=== PATIENT | male | born 1975 | race Caucasian/White ===

== ENCOUNTER 2016-12-11 14:08 | Emergency (ER) | payer OTHER ==
[2016-12-11 14:16] VITALS: TEMP 98.2
[2016-12-11] MEDS ORDERED: NS 1,000 ML IV ONE ×2 (15:30→15:38)
--- NOTE | 2016-12-11 15:30 | EDPHY ---
H & P Time Seen by Provider: 12/11/16 15:26 HPI/ROS: Chief complaint. Abdominal pain HPI. 41-year-old male with history of pancreatitis presents with abdominal pain and vomiting that began this morning. He knows periumbilical pain and it "hurts all over". Radiation to his back. It feels like previous pancreatitis. No diarrhea. Bowel movement this morning. Previous pancreatitis is been from alcohol but he says no alcohol for 2 months. No chest discomfort trouble breathing. No fever. No urinary symptoms. ROS Constitutional. no fever/chills, no weakness Eyes. no problems with vision ENT. no sore throat, no nasal drainage Cardiovascular. no chest pain Respiratory. no shortness of breath, no cough Abdominal. Abdominal pain with nausea vomiting . no problems urinating MS. no calf pain/swelling, no neck/back pain, no joint pain Skin. no rash Lymph. no swollen glands Neuro. no headache, no dizziness, no difficulty walking or with speech Past Medical/Surgical History: Chronic pain, pancreatitis, hypertension Social History: Single, nonsmoker, no alcohol Smoking Status: Never smoked Physical Exam: General Appearance: Alert well-developed male moderate distress vital signs are stable Eyes: Pupils equal and round no pallor or injection. ENT, Mouth: Mucous membranes are moist. Respiratory: There are no retractions, lungs are clear to auscultation. Cardiovascular: Regular rate and rhythm. Gastrointestinal: Abdomen is soft and diffusely tender. No masses. Decreased bowel sounds. No particular pain at McBurney's point Neurological: Awake and alert, sensory and motor exams grossly normal. Skin: Warm and dry, no rashes. Musculoskeletal: Neck is supple nontender. Extremities symmetrical, full range of motion. Psychiatric: Patient is oriented X 3, there is no agitation. Constitutional: Initial Vital Signs Temperature (C) 36.8 C 12/11/16 14:12 Heart Rate 99 12/11/16 14:12 Respiratory Rate 16 12/11/16 14:12 Blood Pressure 130/100 H 12/11/16 14:12 O2 Sat (%) 98 12/11/16 14:12 O2 Delivery Mode Nasal Cannula O2 (L/minute) 2 Allergies/Adverse Reactions: No Known Allergies Allergy (Verified 07/06/16 22:54) Home Medications: Medication Instructions Recorded Ondansetron Odt [Zofran Odt 4 mg 4 mg PO Q4PRN PRN #10 tab 04/01/15 (*)] morphINE [morphINE 2mg/ml Inj (*)] 04/01/15 Amoxicillin/Clavulanate Pot 875 mg PO BID #20 tab 07/06/16 [Augmentin 875 mg tab] oxyCODONE CR [Oxycontin] 15 mg PO BID 07/06/16 Ondansetron Odt [Zofran Odt] 4 mg PO Q4PRN PRN #4 tab 12/11/16 Medical Decision Making - Diagnostics Imaging Results: CT abdomen and pelvis with IV contrast reviewed by me and discussed with Dr. Lujan consistent with constipation. No evidence for pancreatitis or appendicitis. No bowel obstruction. Incidental finding of liver cysts. Procedures: IV normal saline. Zofran, Dilaudid, Ativan ED Course/Re-evaluation: Re-evaluation at 5:30 p.m.. Patient and I discussed imaging and lab results. We discussed treatment plan including criteria for return and importance of follow-up and further evaluation. He expresses understanding and agreement He requests another round of Zofran before the IV is removed though he has not vomited. Differential Diagnosis: I considered pancreatitis, appendicitis, small-bowel obstruction, constipation - Data Points Laboratory Results: Laboratory Results 12/11/16 15:50 12/11/16 15:50 12/11/16 12/11/16 15:50 15:50 WBC 9.10 10^3/uL 10^3/uL (3.80-9.50) RBC 6.16 10^6/uL 10^6/uL (4.40-6.38) Hgb 19.4 g/dL H g/dL (13.7-17.5) Hct 54.7 % H % (40.0-51.0) MCV 88.8 fL fL (81.5-99.8) MCH 31.5 pg pg (27.9-34.1) MCHC 35.5 g/dL g/dL (32.4-36.7) RDW 12.5 % % (11.5-15.2) Plt Count 165 10^3/uL 10^3/uL (150-400) MPV 9.7 fL fL (8.7-11.7) Neut % (Auto) 87.6 % H % (39.3-74.2) Lymph % (Auto) 8.0 % L % (15.0-45.0) [place] % (Auto) 4.0 % L % (4.5-13.0) Eos % (Auto) 0.0 % L % (0.6-7.6) Baso % (Auto) 0.2 % L % (0.3-1.7) Nucleat RBC Rel Count 0.0 % % (0.0-0.2) Absolute Neuts (auto) 7.97 10^3/uL H 10^3/uL (1.70-6.50) Absolute Lymphs (auto) 0.73 10^3/uL L 10^3/uL (1.00-3.00) Absolute Monos (auto) 0.36 10^3/uL 10^3/uL (0.30-0.80) Absolute Eos (auto) 0.00 10^3/uL L 10^3/uL (0.03-0.40) Absolute Basos (auto) 0.02 10^3/uL 10^3/uL (0.02-0.10) Absolute Nucleated RBC 0.00 10^3/uL 10^3/uL (0-0.01) Immature Gran % 0.2 % % (0.0-1.1) Immature Gran # 0.02 10^3/uL 10^3/uL (0.00-0.10) Sodium 138 mEq/L mEq/L (134-144) Potassium 4.3 mEq/L mEq/L (3.5-5.2) Chloride 103 mEq/L mEq/L (97-110) Carbon Dioxide 22 mEq/l mEq/l (22-31) Anion Gap 13 mEq/L mEq/L (8-16) BUN 13 mg/dL mg/dL (7-23) Creatinine 0.9 mg/dL mg/dL (0.7-1.3) Estimated GFR > 60 Glucose 119 mg/dL H mg/dL (70-100) Calcium 10.2 mg/dL mg/dL (8.5-10.4) Total Bilirubin 1.6 mg/dL H mg/dL (0.1-1.4) Conjugated Bilirubin 0.2 mg/dL mg/dL (0.0-0.5) Unconjugated Bilirubin 1.4 mg/dL H mg/dL (0.0-1.1) AST 26 IU/L IU/L (17-59) ALT 32 IU/L IU/L (21-72) Alkaline Phosphatase 80 IU/L IU/L (38-126) Total Protein 8.2 g/dL g/dL (6.3-8.2) Albumin 5.2 g/dL H g/dL (3.5-5.0) Lipase 148.0 IU/L IU/L (23-300) Ethyl Alcohol < 10 mg/dL mg/dL (0-10) Medications Given: Discontinued Medications Hydromorphone HCl (Dilaudid) 0.5 mg IVP EDNOW ONE Stop: 12/11/16 15:39 Last Admin: 12/11/16 15:55 Dose: 0.5 mg Sodium Chloride (Ns) 1,000 mls @ 0 mls/hr IV ONCE ONE PRN Reason: Wide Open Stop: 12/11/16 15:31 Last Admin: 12/11/16 16:05 Dose: 1,000 mls Sodium Chloride (Ns) 1,000 mls @ 0 mls/hr IV ONCE ONE PRN Reason: Wide Open Stop: 12/11/16 15:39 Last Admin: 12/11/16 15:50 Dose: 1,000 mls Lorazepam (Ativan Injection) 1 mg IVP EDNOW ONE Stop: 12/11/16 15:40 Last Admin: 12/11/16 15:55 Dose: 1 mg Ondansetron HCl (Zofran) 4 mg IVP EDNOW ONE Stop: 12/11/16 15:39 Last Admin: 12/11/16 15:55 Dose: 4 mg Departure - Departure Disposition: Home, Routine, Self-Care Clinical Impression: Abdominal pain Qualifiers: Abdominal location: periumbilical Qualified Code(s): R10.33 - Periumbilical pain Condition: Good Instructions: Constipation (ED) Additional Instructions: Increased fluids including fruit and prune juice. Milk of magnesia, eun Colace , magnesium citrate from the grocery store for constipation. Return for worsening pain, fever, vomiting. Recheck in 2 days if not improved Zofran if needed for nausea and vomiting Referrals: Juan Ashby MD [Primary Care Provider] - 2-3 days, if not improved Prescriptions: Ondansetron Odt [Zofran Odt] 4 mg PO Q4PRN PRN #4 tab PRN Reason: Nausea/Vomiting, Use 1st
[2016-12-11] MEDS ORDERED: ONDANSETRON 4 MG/2 ML VIAL IVP ONE ×2 (15:38→17:43)
[2016-12-11] MEDS ORDERED: HYDROmorphONE/DILAUDID 1 MG/ML SYR IVP ONE (15:38)
[2016-12-11] MEDS ORDERED: LORazepam 2 MG/ML INJ IVP ONE (15:39)
[2016-12-11 16:05] LABS: % IMMATURE GRANULYOCYTES 0.2 % (0.0-1.1); ABSOLUTE IMMATURE GRANULOCYTES 0.02 10^3/uL (0.00-0.10); ADD DIFF? NO; ADD MORPH? NO; ADD SCAN? NO; ATYPICAL LYMPHOCYTE FLAG 0 (0-99); FRAGMENT RBC FLAG 0 (0-99); HEMATOCRIT 54.7 % (40.0-51.0); HEMOGLOBIN 19.4 g/dL (13.7-17.5); LEFT SHIFT FLG 0 (0-99); LIPEMIA HEMOLYSIS FLAG 90 (0-99); MEAN CELL HEMOGLOBIN 31.5 pg (27.9-34.1); MEAN CELL HEMOGLOBIN CONCENTR. 35.5 g/dL (32.4-36.7); MEAN CELL VOLUME 88.8 fL (81.5-99.8); MEAN PLATELET VOLUME 9.7 fL (8.7-11.7); PLATELET CLUMPS FLAG 20 (0-99); PLATELET COUNT 165 10^3/uL (150-400); RED BLOOD CELL COUNT 6.16 10^6/uL (4.40-6.38); RED CELL DISTRIBUTION WIDTH 12.5 % (11.5-15.2)
[2016-12-11 16:42] LABS: ALANINE AMINOTRANSFERASE 32 IU/L (21-72); ALBUMIN 5.2 g/dL (3.5-5.0); ALKALINE PHOSPHATASE 80 IU/L (38-126); ASPARTATE AMINOTRANSFERASE 26 IU/L (17-59); BILIRUBIN,TOTAL 1.6 mg/dL (0.1-1.4); BILIRUBIN-CONJUGATED 0.2 mg/dL (0.0-0.5); BILIRUBIN-UNCONJUGATED 1.4 mg/dL (0.0-1.1); CALCIUM 10.2 mg/dL (8.5-10.4); CARBON DIOXIDE 22 mEq/l (22-31); CHLORIDE 103 mEq/L (97-110); CREATININE 0.9 mg/dL (0.7-1.3); ETHANOL SERUM < 10 mg/dL (0-10); GLOMERULAR FILTRATION RATE > 60; GLUCOSE 119 mg/dL (70-100); SODIUM 138 mEq/L (134-144); TOTAL PROTEIN 8.2 g/dL (6.3-8.2)
[2016-12-11] MEDS ORDERED: IOPAMIDOL (ISOVUE-300) 100 ML BTL ONE (16:45)
[2016-12-11 16:46] LABS: ANION GAP 13 mEq/L (8-16); POTASSIUM 4.3 mEq/L (3.5-5.2)
[2016-12-11 18:05] VITALS: BP 145/80; PULSE 70; RESP 18; O2SAT 95
== END 2016-12-11 18:05 | disposition home or self-care (01) ==
DX: R10.33 Periumbilical pain (principal); I10 Essential (primary) hypertension
CPT/HCPCS: 96374; G0480; J1170; J2060; J2405; Q9967

== ENCOUNTER 2016-12-14 15:31 | Emergency (ER) | payer OTHER ==
[2016-12-14] MEDS ORDERED: HALOPERIDOL LACT 5 MG/ML INJ ONE (15:57)
[2016-12-14] MEDS ORDERED: HALOPERIDOL LACT 5 MG/ML INJ IVP ONE (15:57)
--- NOTE | 2016-12-14 15:57 | EDPHY ---
H & P Stated Complaint: nausea and vomiting seen sunday for same Time Seen by Provider: 12/14/16 15:44 HPI/ROS: Chief Complaint: Abdominal pain, nausea, vomiting HPI: 41-year-old male with a history of recurrent pancreatitis presenting with abdominal pain, nausea and vomiting. Patient was seen 3 days ago for similar symptoms. Had a CT scan which was negative with exception of constipation. Symptoms were attributed to constipation secondary to his chronic narcotic use. Patient states that his pain was gone until this morning after he drank 2 oz of magnesium citrate. Has had worsening pain in his upper abdomen with nausea and vomiting multiple times since that time. Has not had a bowel movement for 3 days. No hematemesis. Patient states oxycodone and morphine for chronic neck pain. Denies any fevers or chills. No chest pain or shortness of breath. ROS: 10 point Review of Systems is negative except as noted in the HPI. PMH: Pancreatitis, neck pain Medications: Oxycodone, morphine Allergies: No known drug allergies Social History: Positive smoking, no alcohol for 4 months, marijuana weekly Family History: non-contributory Physical Exam: Gen: Awake, Alert, No Distress HEENT: Nose: no rhinorrhea Eyes: PERRLA, EOMI Mouth: Moist mucosa Neck: Supple, no JVD Chest: nontender, lungs clear to auscultation Heart: S1, S2 normal, no murmur Abd: Hypoactive bowel sounds, epigastric and left upper quadrant tenderness, voluntary guarding Back: no CVA tenderness, no midline tenderness Ext: no edema, non-tender Skin: no rash Neuro: CN II-XII intact, Sensation grossly intact, Strength 5/5 in bilateral upper and lower extremities - Personal History Current Tetanus/Diphtheria Vaccine: Yes - Medical/Surgical History Hx Asthma: No Hx Chronic Respiratory Disease: No Hx Diabetes: No Hx Cardiac Disease: No Hx Renal Disease: No Hx Cirrhosis: No Hx Alcoholism: No Hx HIV/AIDS: No Hx Splenectomy or Spleen Trauma: No Other PMH: R shoulder chronic pain/stenosis, pancreatitis, neck pain - Social History Smoking Status: Current some day smoker Constitutional: Initial Vital Signs Temperature (C) 36.8 C 12/14/16 15:35 Heart Rate 88 12/14/16 15:35 Respiratory Rate 18 12/14/16 15:35 Blood Pressure 161/96 H 12/14/16 15:35 O2 Sat (%) 99 12/14/16 15:35 O2 Delivery Mode Room Air Allergies/Adverse Reactions: No Known Allergies Allergy (Verified 12/14/16 15:32) Home Medications: Medication Instructions Recorded morphINE [morphINE 2mg/ml Inj (*)] 04/01/15 oxyCODONE CR [Oxycontin] 15 mg PO BID 07/06/16 Ondansetron Odt [Zofran Odt] 4 mg PO Q4PRN PRN #4 tab 12/11/16 Promethazine HCl [Phenergan 12.5mg 12.5 mg UT Q8 PRN #10 suppr 12/14/16 supp (*)] Medical Decision Making - Diagnostics Imaging Results: Imaging Impressions Abdomen Ultrasound 12/14/16 17:07 Impression: 1. No cholelithiasis or biliary ductal dilation. 2. Hepatic hemangioma, measuring 2.9 cm. Findings and recommendations discussed with Emergency Department physician, Quintin Hogan M.D., at 1847 hours, on December 14, 2016. Final report concurs with initial preliminary interpretation. ED Course/Re-evaluation: Patient is somewhat improved after Haldol, Benadryl and fluids. Is still having some pain. Has noted that he has elevation in his bilirubin. Will obtain ultrasound. Patient is unable to tolerate ultrasound secondary to pain. I have a very long discussion with him regarding his narcotic use and that is likely what is causing most of his constipation. Have encouraged him to seek alternative treatments for his chronic neck pain. Ultrasound is negative for acute biliary disease. Patient is feeling much better after his medicines. He is tolerating p.o.. He is requesting to go at this time. I have encouraged him to discuss with his physician alternate is for pain management has his chronic narcotic use is having a deleterious effect. - Data Points Laboratory Results: Laboratory Results 12/14/16 15:55 12/14/16 15:55 12/14/16 12/14/16 15:55 15:55 WBC 9.36 10^3/uL 10^3/uL (3.80-9.50) RBC 6.64 10^6/uL H 10^6/uL (4.40-6.38) Hgb 20.9 g/dL H* g/dL (13.7-17.5) Hct 57.9 % H % (40.0-51.0) MCV 87.2 fL fL (81.5-99.8) MCH 31.5 pg pg (27.9-34.1) MCHC 36.1 g/dL g/dL (32.4-36.7) RDW 12.3 % % (11.5-15.2) Plt Count 172 10^3/uL 10^3/uL (150-400) MPV 9.4 fL fL (8.7-11.7) Neut % (Auto) 77.1 % H % (39.3-74.2) Lymph % (Auto) 14.2 % L % (15.0-45.0) [place] % (Auto) 7.6 % % (4.5-13.0) Eos % (Auto) 0.3 % L % (0.6-7.6) Baso % (Auto) 0.4 % % (0.3-1.7) Nucleat RBC Rel Count 0.0 % % (0.0-0.2) Absolute Neuts (auto) 7.21 10^3/uL H 10^3/uL (1.70-6.50) Absolute Lymphs (auto) 1.33 10^3/uL 10^3/uL (1.00-3.00) Absolute Monos (auto) 0.71 10^3/uL 10^3/uL (0.30-0.80) Absolute Eos (auto) 0.03 10^3/uL 10^3/uL (0.03-0.40) Absolute Basos (auto) 0.04 10^3/uL 10^3/uL (0.02-0.10) Absolute Nucleated RBC 0.00 10^3/uL 10^3/uL (0-0.01) Immature Gran % 0.4 % % (0.0-1.1) Immature Gran # 0.04 10^3/uL 10^3/uL (0.00-0.10) Sodium 137 mEq/L mEq/L (134-144) Potassium 3.6 mEq/L mEq/L (3.5-5.2) Chloride 96 mEq/L L mEq/L (97-110) Carbon Dioxide 24 mEq/l mEq/l (22-31) Anion Gap 17 mEq/L H mEq/L (8-16) BUN 21 mg/dL mg/dL (7-23) Creatinine 1.3 mg/dL mg/dL (0.7-1.3) Estimated GFR > 60 Glucose 103 mg/dL H mg/dL (70-100) Calcium 10.1 mg/dL mg/dL (8.5-10.4) Total Bilirubin 3.1 mg/dL H mg/dL (0.1-1.4) Conjugated Bilirubin 0.5 mg/dL mg/dL (0.0-0.5) Unconjugated Bilirubin 2.6 mg/dL H mg/dL (0.0-1.1) AST 19 IU/L IU/L (17-59) ALT 31 IU/L IU/L (21-72) Alkaline Phosphatase 66 IU/L IU/L (38-126) Total Protein 8.0 g/dL g/dL (6.3-8.2) Albumin 5.2 g/dL H g/dL (3.5-5.0) Lipase 321.0 IU/L H IU/L (23-300) Medications Given: Discontinued Medications Diphenhydramine HCl (Benadryl Injection) 50 mg IVP EDNOW ONE Stop: 12/14/16 16:00 Last Admin: 12/14/16 16:04 Dose: 50 mg Haloperidol Lactate (Haldol Injection) 2.5 mg IVP EDNOW ONE Stop: 12/14/16 15:58 Last Admin: 12/14/16 16:04 Dose: 2.5 mg Hydromorphone HCl (Dilaudid) 0.5 mg IVP EDNOW ONE Stop: 12/14/16 17:34 Last Admin: 12/14/16 17:40 Dose: 0.5 mg Sodium Chloride (Ns) 1,000 mls @ 0 mls/hr IV ONCE ONE PRN Reason: Wide Open Stop: 12/14/16 16:31 Last Admin: 12/14/16 16:38 Dose: 1,000 mls Departure - Departure Disposition: Home, Routine, Self-Care Clinical Impression: Constipation, Dehydration Condition: Good Instructions: Constipation (ED), Dehydration (ED), Narcotic Abuse (ED) Additional Instructions: Please meet with your doctor to make a plan to decrease your opioid medication use. He may take MiraLax per the package instructions for constipation. Make sure to drink at least 8 hours, 8 oz glasses of water a day. Return to the emergency department for increasing pain, unable to tolerate fluids, fevers, chills, or any other concerns. Referrals: Juan Ashby MD [Primary Care Provider] - As per Instructions Prescriptions: Promethazine HCl [Phenergan 12.5mg supp (*)] 12.5 mg UT Q8 PRN #10 suppr PRN Reason: Nausea/Vomiting, Can'T Take Po
[2016-12-14 16:08] LABS: % IMMATURE GRANULYOCYTES 0.4 % (0.0-1.1); ABSOLUTE IMMATURE GRANULOCYTES 0.04 10^3/uL (0.00-0.10); ADD DIFF? NO; ADD MORPH? NO; ADD SCAN? NO; ATYPICAL LYMPHOCYTE FLAG 0 (0-99); FRAGMENT RBC FLAG 0 (0-99); HEMATOCRIT 57.9 % (40.0-51.0); LEFT SHIFT FLG 0 (0-99); LIPEMIA HEMOLYSIS FLAG 90 (0-99); MEAN CELL HEMOGLOBIN 31.5 pg (27.9-34.1); MEAN CELL HEMOGLOBIN CONCENTR. 36.1 g/dL (32.4-36.7); MEAN CELL VOLUME 87.2 fL (81.5-99.8); MEAN PLATELET VOLUME 9.4 fL (8.7-11.7); PLATELET CLUMPS FLAG 0 (0-99); PLATELET COUNT 172 10^3/uL (150-400); RED BLOOD CELL COUNT 6.64 10^6/uL (4.40-6.38); RED CELL DISTRIBUTION WIDTH 12.3 % (11.5-15.2)
[2016-12-14 16:18] LABS: HEMOGLOBIN 20.9 g/dL (13.7-17.5)
[2016-12-14 16:27] LABS: ALANINE AMINOTRANSFERASE 31 IU/L (21-72); ALBUMIN 5.2 g/dL (3.5-5.0); ALKALINE PHOSPHATASE 66 IU/L (38-126); ANION GAP 17 mEq/L (8-16); ASPARTATE AMINOTRANSFERASE 19 IU/L (17-59); BILIRUBIN,TOTAL 3.1 mg/dL (0.1-1.4); BILIRUBIN-CONJUGATED 0.5 mg/dL (0.0-0.5); BILIRUBIN-UNCONJUGATED 2.6 mg/dL (0.0-1.1); CALCIUM 10.1 mg/dL (8.5-10.4); CARBON DIOXIDE 24 mEq/l (22-31); CHLORIDE 96 mEq/L (97-110); CREATININE 1.3 mg/dL (0.7-1.3); GLOMERULAR FILTRATION RATE > 60; GLUCOSE 103 mg/dL (70-100); POTASSIUM 3.6 mEq/L (3.5-5.2); SODIUM 137 mEq/L (134-144)
[2016-12-14] MEDS ORDERED: NS 1,000 ML IV ONE (16:30)
[2016-12-14] MEDS ORDERED: HYDROmorphONE/DILAUDID 1 MG/ML SYR IVP ONE (17:33)
[2016-12-14] MEDS ORDERED: ONDANSETRON 4 MG/2 ML VIAL ONE (18:04)
[2016-12-14 20:40] VITALS: BP 141/74; PULSE 80; RESP 14; TEMP 98.4; O2SAT 94
== END 2016-12-14 20:39 | disposition home or self-care (01) ==
DX: E86.0 Dehydration (principal); K59.00 Constipation, unspecified; F17.200 Nicotine dependence, unspecified, uncomplicated
CPT/HCPCS: 96374; J1170; J1200; J2405

== ENCOUNTER 2017-10-08 11:35 | Emergency (ER) | payer OTHER ==
[2017-10-08] MEDS ORDERED: ONDANSETRON 4 MG/2 ML VIAL IVP ONE ×2 (11:57→13:48)
[2017-10-08] MEDS ORDERED: NS 1,000 ML IV ONE ×2 (11:57→12:20)
[2017-10-08] MEDS ORDERED: LORazepam 2 MG/ML INJ IVP ONE (12:04)
[2017-10-08 12:06] LABS: PLATELET COUNT 224 10^3/uL (150-400)
--- NOTE | 2017-10-08 12:16 | EDPHY ---
H & P Time Seen by Provider: 10/08/17 11:56 HPI/ROS: CHIEF COMPLAINT: Abdominal pain, vomiting HISTORY OF PRESENT ILLNESS: 42-year-old male presents to the emergency department with abdominal pain and vomiting that began last night. He has vomited 6 times. He has had several episodes of similar symptoms in the past. He has a known history of pancreatitis. He states this was typically associated with drinking. He has not drank any alcohol. He does smoke marijuana. He denies chest pain or difficulty breathing. He does not report any trauma. No treatment at home. REVIEW OF SYSTEMS: Constitutional: No fever, no chills. Eyes: No double or blurry vision. ENT: No sore throat. Respiratory: No cough, no shortness of breath. Cardiac: No chest pain. Gastrointestinal: Abdominal pain, vomiting as above. No diarrhea. Genitourinary: No dysuria. Musculoskeletal: No neck or back pain. Skin: No rashes. Neurological: No headache. Past Medical/Surgical History: Pancreatitis, chronic pain shoulder and back Social History: Single Smoking Status: Former smoker Physical Exam: General Appearance: Lethargic, no distress. 100/83, 99% on room air. Eyes: Pupils equal and round. Extraocular motions are all intact. ENT: Mouth: Mucous membranes moist. Respiratory: No wheezing, rhonchi, or rales, lungs are clear to auscultation. Cardiovascular: Regular rate and rhythm. Gastrointestinal: Abdomen is soft. He has diffuse tenderness with palpation especially the epigastric area. There is no rebound, guarding or masses noted. No CVA tenderness bilaterally. Patient is not cooperative and is rolling around when I tried to examine his abdomen. Neurological: Alert and oriented x 3, cranial nerves II through XII grossly intact Skin: Warm and dry, no rashes. Musculoskeletal: Nontender to palpate along the cervical, thoracic or lumbar spine. Neck is supple. Extremities: Full range of motion and no peripheral edema. Psychiatric: Patient is oriented X 3, there is no agitation. Constitutional: Initial Vital Signs Temperature (C) 36.7 C 10/08/17 11:38 Heart Rate 96 10/08/17 11:38 Respiratory Rate 22 H 10/08/17 11:38 Blood Pressure 100/83 H 10/08/17 11:38 O2 Sat (%) 99 10/08/17 11:38 O2 Delivery Mode Room Air Allergies/Adverse Reactions: No Known Allergies Allergy (Verified 10/08/17 11:37) Home Medications: Medication Instructions Recorded Oxycontin 10/08/17 morphINE 10/08/17 Medical Decision Making ED Course/Re-evaluation: 42-year-old male presents to the emergency department with abdominal pain. The patient states that this is exactly like his previous episodes of abdominal pain. The patient has had 5 [address] scans in the last 5 years the abdomen and pelvis showing constipation. He has had pancreatitis in the past. Lipase is normal. Laboratory studies were all unremarkable. Patient received IV normal saline, IV Zofran and IV Ativan. Feeling much better. Tolerating p.o. Fluids. Comfortable being discharged home. I do not think this patient has an acute abdomen. I do not think imaging studies are indicated. Differential Diagnosis: Including but not limited to chronic abdominal pain, colitis, pancreatitis, bowel obstruction, constipation - Data Points Laboratory Results: Laboratory Results 10/08/17 11:54 10/08/17 11:54 10/08/17 10/08/17 11:54 11:54 WBC 9.77 10^3/uL H 10^3/uL (3.80-9.50) RBC 6.01 10^6/uL 10^6/uL (4.40-6.38) Hgb 19.2 g/dL H g/dL (13.7-17.5) Hct 52.8 % H % (40.0-51.0) MCV 87.9 fL fL (81.5-99.8) MCH 31.9 pg pg (27.9-34.1) MCHC 36.4 g/dL g/dL (32.4-36.7) RDW 13.4 % % (11.5-15.2) Plt Count 224 10^3/uL 10^3/uL (150-400) MPV 9.4 fL fL (8.7-11.7) Neut % (Auto) 82.1 % H % (39.3-74.2) Lymph % (Auto) 13.6 % L % (15.0-45.0) [place] % (Auto) 3.3 % L % (4.5-13.0) Eos % (Auto) 0.2 % L % (0.6-7.6) Baso % (Auto) 0.4 % % (0.3-1.7) Nucleat RBC Rel Count 0.0 % % (0.0-0.2) Absolute Neuts (auto) 8.02 10^3/uL H 10^3/uL (1.70-6.50) Absolute Lymphs (auto) 1.33 10^3/uL 10^3/uL (1.00-3.00) Absolute Monos (auto) 0.32 10^3/uL 10^3/uL (0.30-0.80) Absolute Eos (auto) 0.02 10^3/uL L 10^3/uL (0.03-0.40) Absolute Basos (auto) 0.04 10^3/uL 10^3/uL (0.02-0.10) Absolute Nucleated RBC 0.00 10^3/uL 10^3/uL (0-0.01) Immature Gran % 0.4 % % (0.0-1.1) Immature Gran # 0.04 10^3/uL 10^3/uL (0.00-0.10) Sodium 141 mEq/L mEq/L (135-145) Potassium 3.9 mEq/L mEq/L (3.5-5.2) Chloride 106 mEq/L mEq/L (97-110) Carbon Dioxide 21 mEq/l L mEq/l (22-31) Anion Gap 14 mEq/L mEq/L (8-16) BUN 13 mg/dL mg/dL (7-23) Creatinine 0.9 mg/dL mg/dL (0.7-1.3) Estimated GFR > 60 Glucose 113 mg/dL H mg/dL (70-100) Calcium 10.3 mg/dL mg/dL (8.5-10.4) Total Bilirubin 0.9 mg/dL mg/dL (0.1-1.4) Conjugated Bilirubin 0.3 mg/dL mg/dL (0.0-0.5) Unconjugated Bilirubin 0.6 mg/dL mg/dL (0.0-1.1) AST 18 IU/L IU/L (17-59) ALT 39 IU/L IU/L (21-72) Alkaline Phosphatase 96 IU/L IU/L (38-126) Total Protein 8.4 g/dL H g/dL (6.3-8.2) Albumin 5.3 g/dL H g/dL (3.5-5.0) Lipase 197 IU/L IU/L (23-300) Medications Given: Discontinued Medications Sodium Chloride (Ns) 1,000 mls @ 0 mls/hr IV ONCE ONE PRN Reason: Wide Open Stop: 10/08/17 11:58 Last Admin: 10/08/17 12:02 Dose: 1,000 mls Sodium Chloride (Ns) 1,000 mls @ 0 mls/hr IV ONCE ONE PRN Reason: Wide Open Stop: 10/08/17 12:21 Last Admin: 10/08/17 13:02 Dose: 1,000 mls Lorazepam (Ativan Injection) 1 mg IVP EDNOW ONE Stop: 10/08/17 12:05 Last Admin: 10/08/17 12:13 Dose: 1 mg Ondansetron HCl (Zofran) 4 mg IVP EDNOW ONE Stop: 10/08/17 11:58 Last Admin: 10/08/17 12:02 Dose: 4 mg Ondansetron HCl (Zofran) 4 mg IVP EDNOW ONE Stop: 10/08/17 13:49 Last Admin: 10/08/17 14:16 Dose: 4 mg Departure - Departure Disposition: Home, Routine, Self-Care Clinical Impression: Abdominal pain Qualifiers: Abdominal location: generalized Qualified Code(s): R10.84 - Generalized abdominal pain Nausea & vomiting Qualifiers: Vomiting type: unspecified Vomiting Intractability: non-intractable Qualified Code(s): R11.2 - Nausea with vomiting, unspecified Condition: Good Instructions: Acute Nausea and Vomiting (ED), Acute Abdominal Pain (ED) Additional Instructions: Abdominal Pain: Return to the Emergency Department immediately for increasing pain, fever, vomiting, or if not completely better in 8-12 hours. Clear liquids and slowly advance diet as tolerated. Referrals: Juan Ashby MD [Primary Care Provider] - 1-2 days without fail
[2017-10-08 15:18] VITALS: BP 140/86; PULSE 90; RESP 16; TEMP 98.2; O2SAT 98
== END 2017-10-08 15:19 | disposition home or self-care (01) ==
DX: R10.84 Generalized abdominal pain (principal); R11.2 Nausea with vomiting, unspecified; Z87.891 Personal history of nicotine dependence
CPT/HCPCS: 96374; J2060; J2405